=== PATIENT | male | born 1995 | race Caucasian/White ===

== ENCOUNTER 2023-10-08 09:04 | Emergency (ER) | payer SELFPAY ==
[~2023-10-08] VITALS: Ht 177.8 cm; Wt 68.0 kg
[2023-10-08] MEDS: normal saline 1000ml 1,000 ML IV ONE (11:27)
[2023-10-08] MEDS: ondansetron/PF 4mg/2ml inj IV ONE (11:28)
[2023-10-08 14:06] VITALS: BP 123/80; PULSE 78; RESP 15; TEMP 98.3; O2SAT 99
== END 2023-10-08 14:00 | disposition home or self-care (01) ==
LOC: ER 09:05
DX: F10.129 Alcohol abuse with intoxication, unspecified (principal); R11.10 Vomiting, unspecified; Y90.9 Presence of alcohol in blood, level not specified
CPT/HCPCS: 96361; 96374; 99285; J2405; J7030